=== PATIENT | male | born 1980 | race Caucasian/White ===

== ENCOUNTER 2021-01-07 23:45 | Emergency (ER) | payer BC ==
[2021-01-07] MEDS ORDERED: BACIGUENT PACKET TOP ONE (23:46)
[2021-01-08] MEDS ORDERED: Sodium Chloride 0.9% 1000 ML 1,000 ML IV STA
[2021-01-08] MEDS ORDERED: Zofran 4 MG/2 ML VIAL IV ONE
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
[2021-01-08] MEDS ORDERED: KEFZOL 1 GM/50 ML PREMIX** 1 GM/50 ML IVPB IV STA (00:15)
[2021-01-08] MEDS ORDERED: Lactated Ringers 1,000 ML IV ONE ×3 (00:37→02:21)
[2021-01-08 00:39] LABS: Absolute Neutrophil Ct (ANC) 2.38 (1.4-6.9); BASOPHIL % 0.4 % (0.0-0.4); Basophil (Absolute #) 0.02 (0-0.4); Eosinophil % 2.5 % (0.00-5.0); Eosinophil (Absolute #) 0.13 (0-0.5); Hematocrit 45.4 % (42-50); Hemoglobin 15.2 gm/dl (12.5-18.0); Lymphocyte (Absolute #) 2.23 (1.0-4.6); Mean Cell Volume 96.6 fl (78-100); Mean Corpuscular Hemoglobin 32.3 pg (26-32); Mean Corpuscular Hgb Concent. 33.5 g/dl (32-36); Mean Platelet Volume 9.1 fl (7.5-11.0); Monocyte (Absolute #) 0.43 (0.0-1.3); Monocytes % 8.3 % (0.0-12.0); Neutrophil % 45.8 % (36.0-66.0); Platelet Count 219 K/mm3 (150-450); Red Cell Distribution Width 14.2 % (11.5-14.0); White Blood Count 5.2 K/mm3 (4.0-10.5)
[2021-01-08 00:50] LABS: ALBUMIN 4.7 g/dL (3.5-5.0); ALKALINE PHOSPHATASE 59 U/L (38-126); ANION GAP 16.7 MEQ/L (5-15); BLOOD UREA NITROGEN 14 mg/dL (9-20); CHLORIDE 109 mmol/L (98-107); Calcium 8.9 mg/dL (8.4-10.2); Carbon Dioxide 23 mmol/L (22-30); Creatinine 1 0.91 mg/dL (0.66-1.25); EST GLOMERULAR FILTRATION RATE > 60.0 ML/MIN; ETHYL ALCOHOL 284 mg/dL (0-10); Glucose 101 mg/dL (74-106); Potassium 3.8 mmol/L (3.5-5.1); SGOT/AST 32 U/L (17-59); SGPT/ALT 26 U/L (0-50); SODIUM 145 mmol/L (137-145); Total Protein 7.3 g/dL (6.3-8.2)
[2021-01-08] MEDS ORDERED: MORPHINE SULFATE 2 MG INJ ONE ×2 (01:21→02:27)
[2021-01-08] MEDS ORDERED: MORPHINE SULFATE 4 MG INJ IV ONE (01:23)
[2021-01-08 01:45] LABS: Amphetamine,Urine NEGATIVE (NEGATIVE); Barbiturate,Urine NEGATIVE (NEGATIVE); Benzodiazepine,Urine NEGATIVE (NEGATIVE); Cocaine,Urine NEGATIVE (NEGATIVE); Methadone,Urine NEGATIVE (NEGATIVE); Opiate,Urine NEGATIVE (NEGATIVE); PCP,Urine NEGATIVE (NEGATIVE); THC,Urine NEGATIVE (NEGATIVE)
[2021-01-08 01:58] VITALS: PULSE 74; O2SAT 98
[2021-01-08] MEDS ORDERED: MORPHINE SULFATE 2 MG INJ IV ONE (02:26)
[2021-01-08 02:54] VITALS: BP 154/72
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
== END 2021-01-08 02:45 | disposition short-term general hospital (02) ==
LOC: ED 23:45
DX: T21.33XA Burn of third degree of upper back, initial encounter (principal); T20.211A Burn of second degree of right ear [any part, except ear drum], initial encounter; T20.27XA Burn of second degree of neck, initial encounter; T22.232A Burn of second degree of left upper arm, initial encounter; T22.211A Burn of second degree of right forearm, initial encounter; T22.231A Burn of second degree of right upper arm, initial encounter; X03.3XXA Fall due to controlled fire, not in building or structure, initial encounter; Y93.89 Activity, other specified; Y92.89 Other specified places as the place of occurrence of the external cause; F10.129 Alcohol abuse with intoxication, unspecified
CPT/HCPCS: 36415; 70450; 72125; 80053; 80307; 85025; 96360; 96374; 96375; 96376; 99285; 99291; J0690; J2270; J2405; A9270-GY; G0480